=== PATIENT | male | born 1990 | race Caucasian/White ===

== ENCOUNTER 2017-11-05 04:08 | Emergency (ER) | payer BC ==
--- NOTE | 2017-11-05 04:14 | PDOC ---
History of Present Illness - General Chief Complaint: Injury Stated Complaint: LACERATION TO RIGHT 4TH AND 5TH FINGER Time Seen by Provider: 11/05/17 04:14 History Source: Patient Exam Limitations: No Limitations - History of Present Illness Initial Comments: 11/05/17 04:36 This is a 27-year-old male who comes in complaining of a laceration to the palmar side of his ring and little finger. Patient said that he was putting a knife away when he accidentally cut himself. Patient said he is up-to-date on his tetanus. Patient denies any other complaints. Patient's complaining that he is unable to flex his little finger and the is numbness on the palmar side distal to the injury. PAST MEDICAL HISTORY: no significant history PAST SURGICAL HISTORY: no significant history FAMILY HISTORY: no pertinant history SOCIAL HISTORY: Pt lives with family and is employed. MEDICATIONS: reviewed ALLERGIES: As per nursing notes Review of Systems General: No fevers or chills, no weakness, no weight loss HEENT: No change in vision. No sore throat,. No ear pain CardioVascular: No chest pain or shortness of breath Respiratory:No cough, or wheezing. Gastrointestinal: no nausea, vomitting, diarrhea or constipation, No rectal bleeding Genitourinary: No dysuria, hematuria, or frequency Musculoskeletal: No joint or muscle pain or swelling Neurologic: No headache, vertigo, dizziness or loss of consciousness Psychiatric: nor depression Skin: No rashes or easy bruising, laceration as per history of present illness Endocrine: no increased thirst or abnormal weight change Allergic: no skin or latex allergy All other systems reviewed and normal GENERAL: The patient is awake, alert, and fully oriented, in no acute distress. HEAD: Normal with no signs of trauma. EYES: Pupils equal, round and reactive to light, extraocular movements intact, sclera anicteric, conjunctiva clear. EXTREMITIES: Normal range of motion, no edema Right hand ring finger: There is a laceration approximately 1 cm over the PIP. There is some decreased strength in flexion at the PIP with some numbness distal to the PIP Right hand little finger there is a laceration approximately centimeter PIP. Patient reports no sensation distal to the PIP on the palmar side. Patient is unable to flex his finger at the PIP NEUROLOGICAL: Normal speech, normal gait. grossly intact PSYCH: Normal mood, normal affect. SKIN: Warm, Dry, normal turgor, no rashes or lesions noted. Procedure note laceration repair Laceration of little finger Laceration was anesthetized with 1% lidocaine no epinephrine. There is a complete laceration of the flexor tendon laceration was closed loosely with 2 sutures of 5-0 Ethilon Laceration of ring finger Laceration was anesthetized with 1% lidocaine no epinephrine no tendon laceration was visualized however patient reports inability to flex his finger at either the PIP or DIP joint. Laceration was loosely closed with 3 sutures of 5-0 Ethilon Bacitracin and sterile dressings applied to both lacerations 11/05/17 05:[address] Hines who will follow-up with patient in his office. Patient given Dr. Hines's phone number and told to call his office on Sunday. Patient discharged Past History - Past Medical History Allergies/Adverse Reactions: Allergies Allergy/AdvReac Type Severity Reaction Status Date / Time No Known Allergies Allergy Verified 11/05/17 04:10 Home Medications: Ambulatory Orders Escitalopram Oxalate [Lexapro -] 10 mg PO DAILY 11/21/15 Lamotrigine [Lamictal Xr] 500 mg PO DAILY 11/21/15 Cephalexin [Keflex] 500 mg PO QID #28 capsule 11/05/17 Psychiatric Problems: Yes (DEPRESSION) Seizures: Yes - Immunization History Td Vaccination: No TDAP Vaccination: No Immunization Up to Date: Yes - Suicide/Smoking/Psychosocial Hx Smoking Status: No Smoking History: Current every day smoker Have you smoked in the past 12 months: Yes Number of Cigarettes Smoked Daily: 7 'Breaking Loose' booklet given: 12/13/14 Hx Alcohol Use: Yes (THREE TIMES A WEEK) Substance Use Type: None, Alcohol *DC/Admit/Observation/Transfer Diagnosis at time of Disposition: Laceration of right ring finger with tendon involvement, Laceration of right little finger with tendon involvement - Discharge Dispostion Disposition: HOME Condition at time of disposition: Stable - Referrals Referrals: Elfego Hines MD [Staff Physician] - - Patient Instructions Additional Instructions: Clean the laceration once a day with some peroxide and reapply bacitracin and a Band-Aid. Take keflex one tablet 4 times a day to prevent infection. No work until you are cleared by the hand surgeon Dr. Hines Call his office [place] morning for an appointment. Return to the emergency department immediately with ANY new, persistent or worsening symptoms. Continue any medications as previously prescribed by your physician. . Please make sure your doctor reviews the results of your emergency evaluation. Thank you for coming to the Emergency Department today for your care. It was a pleasure to see you today. Please note that your evaluation is INCOMPLETE until you follow-up with your doctor. - Post Discharge Activity Forms/Work/School Notes: Back to Work
[2017-11-05 04:18] VITALS: BP 139/84; PULSE 115; TEMP 98.7; BMI 24.3
[2017-11-05] MEDS ORDERED: CEPHALEXIN MONOHYDRATE 500 MG CAPSULE (UD) PO ONE (05:41)
[2017-11-05] MEDS ORDERED: CEPHALEXIN MONOHYDRATE 250 MG CAPSULE (FP) ONE (05:42)
== END 2017-11-05 05:45 | disposition home or self-care (01) ==
LOC: FER 04:08
DX: S61.214A Laceration without foreign body of right ring finger without damage to nail, initial encounter (principal); S61.216A Laceration without foreign body of right little finger without damage to nail, initial encounter; W26.0XXA Contact with knife, initial encounter; Y93.89 Activity, other specified; Y92.9 Unspecified place or not applicable; F17.210 Nicotine dependence, cigarettes, uncomplicated; F32.9 Major depressive disorder, single episode, unspecified
CPT/HCPCS: 99281-25